=== PATIENT | male | born 1960 | race Caucasian/White ===

== ENCOUNTER 2018-02-02 07:52 | Day surgery (SDC) | payer BC ==
[~2018-02-02] VITALS: Ht 190.5 cm; Wt 112.8 kg
[2018-02-02] MEDS ORDERED: CLON.1 PO (08:57)
[2018-02-02] MEDS ORDERED: Diclofenac Sodi25 MG PO (09:01)
== END 2018-02-02 10:31 | disposition home or self-care (01) ==
LOC: ORSCSDS 07:52
PROVIDERS: Internal Medicine Gastroenterology
PROC: 0DJD8ZZ Inspection of Lower Intestinal Tract, Via Natural or Artificial Opening Endoscopic (ICD-10-PCS; principal; 2018-02-02 09:30)
DX: Z12.11 Encounter for screening for malignant neoplasm of colon (principal); K57.30 Diverticulosis of large intestine without perforation or abscess without bleeding; K64.8 Other hemorrhoids; I10 Essential (primary) hypertension; Z79.899 Other long term (current) drug therapy
CPT/HCPCS: J2250; J7120

== ENCOUNTER 2018-12-05 02:34 | Inpatient (IN) | payer BC ==
[~2018-12-05] VITALS: Ht 190.5 cm; Wt 117.9 kg
[~2018-12-05 02:34] MED LIST: CLON.1 PO; Diclofenac Sodi25 MG PO
[2018-12-05 03:11] LABS: BASOPHILS PERCENT AUTO 1 % (0-2); EOSINOPHILS ABSOLUTE AUTO 0.33 K/mm3 (0.00-0.68); EOSINOPHILS PERCENT AUTO 5 % (0-6); Hematocrit 45.4 % (37.0-53.0); IMMATURE GRAN ABSOLUTE AUTO 0.02 K/mm3 (0.00-0.10); IMMATURE GRAN PERCENT AUTO 0 % (0-1); LYMPHOCYTES PERCENT AUTO 46 % (21-46); MONOCYTES ABSOLUTE AUTO 0.82 K/mm3 (0.16-1.47); MONOCYTES PERCENT AUTO 11 % (4-13); Mean Corpuscular HGB 29.4 pg (26.0-34.0); Mean Corpuscular Volume 89 fL (80-100); Mean Platelet Volume 10.4 fL (9.1-12.4); NEUTROPHILS ABSOLUTE AUTO 2.74 K/mm3 (1.96-9.15); NEUTROPHILS PERCENT AUTO 37 % (41-73); Platelet Count 194 K/mm3 (150-400); RDW Coefficient Variation 13.1 % (11.7-14.2); RDW Standard Deviation 42.6 fL (35.1-46.3); Red Blood Cell Count 5.11 M/mm3 (4.30-5.90); White Blood Cell Count 7.41 K/mm3 (4.00-11.30)
[2018-12-05 03:30] LABS: Alanine Aminotransfer (ALT/SGP 39 U/L (12-78); Albumin, Blood 3.7 g/dL (3.4-5.0); Albumin/Globulin Ratio 1.1 (0.8-1.8); Alk Phos 108 U/L (50-136); Anion Gap 7 mmol/L (6-16); Aspartate Aminotrans (AST/SGOT 19 U/L (12-37); Bilirubin, Total 0.3 mg/dL (0.1-1.0); Blood Urea Nitrogen 23 mg/dL (8-24); Bun/Creatinine Ratio 21.7 (12.0-20.0); CO2, Blood 25 mmol/L (21-32); Calcium, Blood 8.6 mg/dL (8.5-10.1); Chloride, Blood 108 mmol/L (98-108); Creatinine, Blood 1.06 mg/dL (0.60-1.20); Globulin, Blood 3.5 g/dL (2.2-4.0); Glomerular Filtration Rate >60 (60-); Glucose, Blood 115 mg/dL (70-99); Potassium, Blood 3.3 mmol/L (3.5-5.5); Sodium, Blood 140 mmol/L (136-145); Total Protein, Blood 7.2 g/dL (6.4-8.2); Troponin I 0.064 ng/mL (0.000-0.040)
--- NOTE | 2018-12-05 06:17 | NUR ---
PCU NO SHIFT SUMMARY PATIENT ADMITTED FROM HEART [facility] WITH PCI RIGHT RADIAL SIGHT W/ NO STENT PLACEMENT. ARM BOARD REMAINS IN PLACE - TR BAND IN PLACE FULLY INFLATED AT THIS TIME - SOME MILD SWELLING NOTED AROUND SITE AND SCANT AMOUNT OF BLOOD UNDER TR BAND. PATIENT REPORTS CONTINUED PAIN FROM HIS NECK TO SHOULDERS RADIATING DOWN TO HIS 5TH FINGERS ON BOTH SIDES. FAMILY AT BEDSIDE. PATIENT INDEPENDANT AND ALERT AND ORIENTED X4. NO ACUTE DISTRESS NOTED. WILL CONTINUE TO MONITOR.
--- NOTE | 2018-12-05 08:13 | NUR ---
ASSUMED CARE OF PT AT 0700. TR BAND IN PLACE ON RIGHT RADIAL. 2CC REMOVED AT 0810. NO BLEEDING OR HEMATOMA NOTED. MILD SWELLING PROXIMAL FROM SITE, PER REPORT THAT HAS NOT CHANGED. PT A&Ox4. CALM AND COOPERATIVE WITH CARE. PT RESTING IN BED, UP IND TO BATHROOM. PT EDUCATED NOT TO USE RIGHT ARM FOR ANYTHING AND TO HOLD PRESSURE AND CALL IF BLEEING OCCURS. PT DENIES SOB, >92% ON RA. PT DENIES PAIN, STATES TYLENOL TOOK BILATERAL ARM AND BACK PAIN AWAY. PT DENIES CHEST PAIN, DIZZINESS AND NUM/T. ELEVATED BP NOTED, MEDICATED WITH SCHEDULED BP MEDS. WILL CONTINUE TO MONITOR.
--- NOTE | 2018-12-05 09:46 | NUR ---
2CC OUT OF TR BAND. NO CHANGES. BP TRENDING DOWN.
--- NOTE | 2018-12-05 10:08 | NUR ---
PT HAD 6 BEAT RUN OF V-TACH, PT ASSYMPTOMATIC, VSS. PT STATES HE HAS EXPERIENCED EPISODES "WHERE IT FEELS LIKE MY HEART SKIPS A BEAT, THEN PICKS UP SPEED AND EVENTUALLY SLOWS DOWN." WILL CONTINUE TO MONITOR.
--- NOTE | 2018-12-05 13:06 | NUR ---
RIGHT RADIAL SITE - A TOTAL OF 10CC REMOVED FROM TR BAND, LAST 2CC TAKEN AT 1130. AIR RELEASED FROM TR BAND PER PROTOCOL. NO HEMATOMA OR BLEEDING NOTED AT REMOVAL OF TR BAND. NO CHANGES TO SIDE, SLIGHT SWELLING PROXIMAL TO SITE REMAINS THE SAME. TEGADERM PLACED.
--- NOTE | 2018-12-05 16:49 | NUR ---
SHIFT SUMMARY PT A&Ox4, CALM AND COOPERATIVE WITH CARE. PT RESTING IN BED DURINGS SHIFT, UP TO RECLINER THIS AM. PT IND IN ROOM. PT REPORTS ABRAHAM AND SHOULDER PAIN, MEDICATED x1 WITH TYLENOL WITH POSITIVE RESULTS. PT DENIES SOB, DIZZINESS, NUM/T, CHEST PAIN/PRESSURE AND NAUSEA. TELE SR WITH PVC, 6 BEAT RUN OF VTACH, DR KILGORE NOTIFIED. CRITICAL TROP 34, DR KILGORE NOTFIED. ECHO AND CTA COMPLETED DURING SHIFT. ELEVATED BP NOTED, MEDICATED PER EMAR. NO CHANGES TO RIGHT RADIAL SITE, TR BAND REMOVED DURING SHIFT, NO SIGNS OF BLEEDING OR HEMATOMA. OTHER VSS. NO OTHER ACUTE CHANGES NOTED DURING SHIFT. WILL CONTINUE TO MONITOR UNTIL REPORT GIVEN TO ONCOMING RN.
[2018-12-06 04:22] LABS: BASOPHILS ABSOLUTE AUTO 0.08 K/mm3 (0.00-0.23); BASOPHILS PERCENT AUTO 1 % (0-2); EOSINOPHILS ABSOLUTE AUTO 0.21 K/mm3 (0.00-0.68); EOSINOPHILS PERCENT AUTO 2 % (0-6); Hematocrit 46.5 % (37.0-53.0); Hemoglobin 15.4 g/dL (13.5-17.5); IMMATURE GRAN ABSOLUTE AUTO 0.03 K/mm3 (0.00-0.10); IMMATURE GRAN PERCENT AUTO 0 % (0-1); LYMPHOCYTES PERCENT AUTO 28 % (21-46); MONOCYTES ABSOLUTE AUTO 1.04 K/mm3 (0.16-1.47); MONOCYTES PERCENT AUTO 11 % (4-13); Mean Corpuscular HGB 28.7 pg (26.0-34.0); Mean Corpuscular HGB Conc 33.1 g/dL (31.5-36.5); Mean Corpuscular Volume 87 fL (80-100); Mean Platelet Volume 10.9 fL (9.1-12.4); NEUTROPHILS ABSOLUTE AUTO 5.55 K/mm3 (1.96-9.15); NEUTROPHILS PERCENT AUTO 58 % (41-73); Platelet Count 235 K/mm3 (150-400); RDW Coefficient Variation 13.2 % (11.7-14.2); RDW Standard Deviation 41.8 fL (35.1-46.3); Red Blood Cell Count 5.36 M/mm3 (4.30-5.90); White Blood Cell Count 9.61 K/mm3 (4.00-11.30)
[2018-12-06 04:45] LABS: Anion Gap 7 mmol/L (6-16); Blood Urea Nitrogen 16 mg/dL (8-24); Bun/Creatinine Ratio 16.2 (12.0-20.0); CO2, Blood 24 mmol/L (21-32); Calcium, Blood 8.7 mg/dL (8.5-10.1); Chloride, Blood 108 mmol/L (98-108); Creatinine, Blood 0.99 mg/dL (0.60-1.20); Glomerular Filtration Rate >60 (60-); Glucose, Blood 108 mg/dL (70-99); Potassium, Blood 3.9 mmol/L (3.5-5.5); Sodium, Blood 139 mmol/L (136-145)
--- NOTE | 2018-12-06 06:08 | NUR ---
SHIFT SUMMARY PT SLEEPING IN ROOM COMFORTABLY AT THIS TIME. NO ACUTE CHANGES IN STATUS T/O NIGHT. PT SLEPT WELL. AND WAS IND IN ROOM TO RR. RESP EVEN UNLABORED ON RA W/ SATS >92%. DENIED PAIN. DENIES OTHER NEEDS. ANGIO SITE WNL, NO HEMATOMAS NOTED. CALL LIGHT IN REACH. PT CALLS APPROPRIATELY.
[2018-12-06] MEDS ORDERED: ATOR40TA PO (11:38)
[2018-12-06] MEDS ORDERED: CARV6.25 PO (11:41)
[2018-12-06] MEDS ORDERED: CLOP75 PO (11:42)
[2018-12-06] MEDS ORDERED: Aspirin EC81 MG PO (11:44)
[2018-12-06] MEDS ORDERED: SPIR25 PO (11:44)
--- NOTE | 2018-12-06 12:30 | NUR ---
REC'D FORESTDERS TO DISCHARGE PT HOME. NEW MEDS FAXED/CALLED TO PT'S PHARMACY. EDUCATION GIVEN ON NEW MEDICATIONS AND POST PROCEDURE CARE. DISCUSSED INSTRUCTIONS WITH PT AND , ANSWERED ALL QUESTIONS. PT REFUSED WHEELCHAIR ESCORT TO VEHICLE, AMBULATED OUT WITH . PT DISCHARGED HOME IN STABLE CONDITION
== END 2018-12-06 12:30 | disposition home or self-care (01) | DRG 282 ==
LOC: ER 02:34 → ICUW 03:12 → PCU 05:18
PROVIDERS: Emergency Medicine; ADMIT Internal Medicine Cardiovascular Disease
PROC: 4A023N7 Measurement of Cardiac Sampling and Pressure, Left Heart, Percutaneous Approach (ICD-10-PCS; principal; 2018-12-05)
PROC: B210YZZ Fluoroscopy of Single Coronary Artery using Other Contrast (ICD-10-PCS; 2018-12-05)
DX: I21.4 Non-ST elevation (NSTEMI) myocardial infarction (principal); I10 Essential (primary) hypertension; I25.10 Atherosclerotic heart disease of native coronary artery without angina pectoris; E78.5 Hyperlipidemia, unspecified; F17.220 Nicotine dependence, chewing tobacco, uncomplicated; E87.6 Hypokalemia
CPT/HCPCS: 36415; 71045; 71275; 74175; 80048; 80053; 83735; 84484; 85025; 93005; 93010; 93306; 93458; 96365; 96375; 99152; 99153; 99285-25; A9270; C1769; C1887; C1894; J0360; J0461; J1644; J2250; J3010; J7030; Q9967

== ENCOUNTER 2024-06-27 18:57 | Emergency (ER) | payer OTHER ==
[~2024-06-27] VITALS: Ht 190.5 cm; Wt 112.5 kg
[~2024-06-27 18:57] MED LIST changes: +ATOR40TA PO; +Aspirin EC81 MG PO; +CARV6.25 PO; +CLOP75 PO; +SPIR25 PO
[2024-06-27 19:03] VITALS: BP 176/103
== END 2024-06-27 19:53 | disposition home or self-care (01) ==
LOC: ER 18:57
DX: I16.0 Hypertensive urgency (principal); I10 Essential (primary) hypertension; Z88.8 Allergy status to other drugs, medicaments and biological substances; Z88.9 Allergy status to unspecified drugs, medicaments and biological substances; Z79.02 Long term (current) use of antithrombotics/antiplatelets; Z79.899 Other long term (current) drug therapy; Z79.82 Long term (current) use of aspirin
CPT/HCPCS: 99283